=== PATIENT | male | born 1995 | race Caucasian/White ===

== ENCOUNTER 2023-02-02 08:28 | Emergency (ER) | payer OTHER ==
[~2023-02-02] VITALS: Ht 175.3 cm; Wt 81.0 kg
[2023-02-02] MEDS ORDERED: KETOROLAC 60MG 2ML VIAL IM ONE (08:55)
[2023-02-02] MEDS ORDERED: IBUP-1022 PO (10:20)
[2023-02-02 10:31] VITALS: BP 137/63
== END 2023-02-02 10:47 | disposition home or self-care (01) ==
LOC: M ED 08:28
DX: R07.82 Intercostal pain (principal); F17.290 Nicotine dependence, other tobacco product, uncomplicated